=== PATIENT | male | born 1985 | race Caucasian/White ===

== ENCOUNTER 2020-08-12 08:05 | Emergency (ER) | payer MEDICAID, SELFPAY ==
[2020-08-12 08:18] VITALS: BP 149/96; PULSE 95; RESP 17; TEMP 36.6; O2SAT 99; BMI 23.0
--- NOTE | 2020-08-12 08:41 | ED_ITS ---
HPI - Male Genitourinary General Chief complaint: General Medical Stated complaint: STD CHECK Time Seen by Provider: 08/12/20 08:34 Source: patient Mode of arrival: ambulatory History of Present Illness HPI Narrative: for reports he was having intercourse with a new partner and his condom broke and since has had discomfort upon ejaculations. States he is concern for STI. MD Complaint: penile discharge and possible STD exposure Severity: mild Related Data Sexually active: Yes Allergies Allergy/AdvReac Type Severity Reaction Status Date / Time No Known Allergies Allergy Unverified 07/27/20 17:29 Review of Systems Review of Systems: Constitutional: No Weight loss, No Fever, No Chills, No Night Sweats, No Fatigue, No Malaise ENT/Mouth: No Hearing loss, No Ear Pain, No Nasal Congestion, No Sinus Pain, No Hoarseness, No sore throat, No Rhinorrhea, No Swallowing Difficulty Eyes: No Eye Pain, No Swelling, No Redness, No Foreign Body, No Discharge, No Vision Changes Cardiovascular: No Chest Pain, No SOB, No Dyspnea on Exertion, No Orthopnea, No Edema, No Palpitations Respiratory: No Cough, No Sputum, No Wheezing, No Smoke Exposure, No Dyspnea Gastrointestinal: No Nausea, No Vomiting, No Diarrhea, No Constipation, No abdominal Pain, No Hematochezia, No Melena Genitourinary: + Penile discharge intermittently, discomfort ejaculations. no irregular bleeding, No Dysuria, No Urinary Frequency, No Hematuria, No Urinary Incontinence, No Urgency, No Flank Pain, No Urinary Flow Changes, No Hesitancy Musculoskeletal: No joint pain, No Myalgias, No Joint Swelling Skin: No Skin Lesions, No rash Neuro: No Weakness, No Numbness, No Paresthesias, No Loss of Consciousness, No Dizziness, No Headache Psych: No Anxiety/Panic, No Depression, No SI/HI/AH/VH, No Social Issues, H admion/Lymph: No Bruising, No Bleeding,No Lymphadenopathy Endocrine: No Polyuria, No Polydipsia, No Temperature Intolerance Yes all other systems are reviewed and are negative [facility] Past Medical History Medical History (Updated 08/12/20 @ 08:55 by Saul Avila NP) No known health problems Social History Social History Advance Directives: No Advance Directives Information Provided: No Physical Exam Vital Signs and I&O and Narrative: Vital Signs and I&O: Vital Signs Temp 97.9 F 08/12/20 08:18 Pulse 95 08/12/20 08:18 Resp 17 08/12/20 08:18 BP 149/96 H 08/12/20 08:18 Pulse Ox 99 08/12/20 08:18 Intake & Output 08/11/20 08/12/20 08/12/20 18:59 06:59 18:59 Weight 58.967 kg Body Mass Index 23.0 Const: General: cooperative and healthy appearing; No acute distress or intox icated appearing Nutritional Appearance: average body habitus Orientation/consciousness: patient oriented x3 Eyes: General: appearance normal, both eyes and all related structures Visual Mercado: normal visual mercado by confrontation Neck: Neck: Yes normal visual inspection, No positive Brudzinski's sign, No positive Kernig's sign and No tender Thyroid: Thyroid normal Chest: Chest palpation & inspection: normal inspection of the chest Resp: Effort & Inspection: normal respiratory effort GI: Inspection: Yes normal to inspection Percussion: Yes normal to percussion Auscultation: normal bowel sounds : General: Yes no CVA tenderness Male General Exam: Yes normal external exam Penis: uncircumcised, no masses, no nodules, no papules, no pustules, no vesicles, no swelling and other ( Very minimal purulent discharge noted from the urethra upon expression ) Meatus: meatus normal Scrotum: scrotum normal Testes: Testes normal Back/Spine/Pelvis: Back: no CVA tenderness Skin: General skin exam: no rashes or lesions noted Neuro: General: patient oriented x3 Extrem: General: Yes normal to inspection Psych: Appearance: grossly normal and well kempt MDM - Male Genitourinary MDM Narrative Medical decision making narrative: Urethral swab for CT/NG. Empirically treated With ceftriaxone/azithromycin. Encouraged to go to [facility] for full panel STD testing. Verbalized understanding. Differential Diagnosis Differential diagnosis: Likely urinary tract infection and urethritis; Unlikely priapism, epididymitis, genital herpes simplex and prostatitis Medical Records Attestation: I reviewed the patient's medical records. Discharge Plan Discharge Clinical Impression: STD (sexually transmitted disease) Patient Disposition: Home, Self-Care Instructions: Sexually Transmitted Diseases (ED), Male Condom Use (ED) Additional Instructions: go to [facility] for full panel STD testing at [facility] on [address] [facility] today we have tested for 2 common STDs (chlamydia/gonorrhea) in treated for this Avoid any sexual contact until you are cleared by the Health Center Return if any concerns or worsening symptoms Thank you
[2020-08-12 09:11] LABS: Glucose Urine UA NEG (NEG); Leukocyte Esterase Urine NEG (NEG); Nitrite Urine NEG (NEG); Specific Gravity - Urine >= 1.030 (1.005-1.025); Urine Blood NEG (NEG); Urine Ketones NEG (NEG); Urine Protein NEG (NEG-TRACE)
[2020-08-12 09:12] LABS: Appearance Urine CLEAR; Color Urine YELLOW
[2020-08-12] MEDS: Azithromycin 500 MG TABLET 1000 MG PO (09:12)
[2020-08-12] MEDS: cefTRIAXone sodium 250 MG VIAL IM (09:13)
[2020-08-12] MEDS: Lidocaine HCl 1 % 20 ML VIAL SUBCUT (09:17)
[2020-08-12 09:22] LABS: RBC Urine 0 /HPF (0); Squamous Epithelial Cell Urine 1+ /LPF; WBC Urine 0 /HPF (0-4)
[2020-08-12 09:23] LABS: Mucus Urine 3+ /LPF
[2020-08-12 12:19] LABS: CT PCR NOT DETECTED (Not Detect.); NG PCR NOT DETECTED (Not Detect.)
== END 2020-08-12 09:30 | disposition home or self-care (01) ==
LOC: HO.ED 08:55
PROVIDERS: Nurse Practitioner Primary Care; Emergency Provider Emergency Medicine
DX: Z20.2 Contact with and (suspected) exposure to infections with a predominantly sexual mode of transmission (principal)
CPT/HCPCS: 36415; 81001; 81003; 87491; 87591; 96372; 99284; J0696

== ENCOUNTER 2021-01-01 00:17 | Emergency (ER) | payer MEDICAID, SELFPAY ==
[2021-01-01 02:02] VITALS: BP 138/92; PULSE 94; RESP 16; TEMP 36.5; O2SAT 97; BMI 24.2
--- NOTE | 2021-01-01 02:15 | PC.NURSE ---
at bedside for primary eval. Plan for labs and GI cocktail. Labs obtained and sent. Awaiting results. Continue to monitor.
--- NOTE | 2021-01-01 02:17 | ED_ITS ---
HPI - Abdominal Pain General Chief Complaint: Abdominal Pain Stated Complaint: ABD PAIN Time Seen by Provider: 01/01/21 02:02 Source: patient Mode of arrival: ambulatory Limitations: no limitations History of Present Illness HPI narrative: Patient comes emergency room complaining of abdominal pain, epigastric pain for the last 5 days. Patient states it is intermittent, burning sensation, nonradiating. Patient reports nausea, 1 episode of vomiting, 2 episodes of diarrhea. Related Data Previous Rx's Medication Instructions Recorded omeprazole 20 mg PO DAILY #14 cap 01/01/21 Allergies Allergy/AdvReac Type Severity Reaction Status Date / Time No Known Allergies Allergy Verified 01/01/21 02:09 Review of Systems Review of Systems Constitutional : No Weight loss, No Fever, No Chills, No Night Sweats, No Fatigue, No Malaise ENT/Mouth : No Hearing loss, No Ear Pain, No Nasal Congestion, No Sinus Pain, No Hoarseness, No sore throat, No Rhinorrhea, No Swallowing Difficulty Eyes: No Eye Pain, No Swelling, No Redness, No Foreign Body, No Discharge, No Vision Changes Cardiovascular : No Chest Pain, No SOB, No Dyspnea on Exertion, No Orthopnea, No Edema, No Palpitations Respiratory : No Cough, No Sputum, No Wheezing, No Smoke Exposure, No Dyspnea Gastrointestinal : Complaining of nausea, 1 episode of vomiting, 1 episode of diarrhea, epigastric burning sensation, No Hematochezia, No Melena Genitourinary : no irregular bleeding, No Dysuria, No Urinary Frequency, No Hematuria, No Urinary Incontinence, No Urgency, No Flank Pain, No Urinary Flow Changes, No Hesitancy Musculoskeletal : No joint pain, No Myalgias, No Joint Swelling Skin : No Skin Lesions, No rash Neuro : No Weakness, No Numbness, No Paresthesias, No Loss of Consciousness, No Dizziness, No Headache Psych : No Anxiety/Panic, No Depression, No SI/HI/AH/VH, No Social Issues, Heme/Lymph: No Bruising, No Bleeding,No Lymphadenopathy Endocrine : No Polyuria, No Polydipsia, No Temperature Intolerance Physical Exam Vital Signs: Vital Signs: Last Vital Signs Temp 97.7 F 01/01/21 02:02 Pulse 94 01/01/21 02:02 Resp 16 01/01/21 02:02 BP 138/92 H 01/01/21 02:02 Pulse Ox 97 01/01/21 02:02 Body Mass Index 24.2 Appearance: Alert. Oriented X3. No acute distress. Eyes: Pupils equal, round and reactive to light. ENT: Pharynx normal. Neck: Normal inspection. Neck supple. No lymph nodes noted. No crepitus CVS: Normal heart rate and rhythm. Pulses normal. Normal S1 and S2 Respiratory: No respiratory distress. Breath sounds normal. No Wheezing. No rales Abdomen: Soft , mild tenderness in epigastric area, negative Lewis sign, No rigidity. No distention. good BS x4 Skin: Skin warm and dry. Normal skin color. Normal skin turgor. Extremities: No lower extremity edema. No lower extremity edema. No Lacerations. No Rash Neuro: Oriented X 3. No motor deficit. No sensory deficit. Moving all extermities. No slurred speech. Course Course Course Narrative: Patient's white blood cell count likely secondary to reactive leukocytosis. Patient states that he had significant relief after the GI cocktail. At this time, not having any abdominal pain, no nausea or diarrhea. Patient likely has gastritis versus peptic ulcer disease MDM - Abdominal Pain Lab Data Result diagrams: 01/01/21 02:22 01/01/21 02:22 Labs: Lab Results 01/01/21 01/01/21 Range/Units 02:22 02:22 WBC 13.0 H (4.8-10.8) X10*3/uL RBC 4.13 L (4.60-5.80) X10*6/uL Hgb 12.0 L (14.0-18.0) g/dl Hct 36.4 L (42-52) % MCV 88.1 (80-98) fL MCH 29.1 (27.0-33.0) pg MCHC 33.0 (31.0-36.0) g/dl RDW 12.6 (11.0-16.0) % Plt Count 300 (160-400) X10*3/uL MPV 9.7 (9.4-12.4) fL Immature Gran % (Auto) 0.3 (0.0-0.4) % Neut % (Auto) 75.0 H (45-73) % Lymph % (Auto) 10.5 L (20-40) % [place] % (Auto) 10.2 (2-11) % Eos % (Auto) 3.8 (0-4) % Baso % (Auto) 0.2 (0-2) % Lymph # (Auto) 1.4 (1.2-4.9) X10*3/uL [place] # (Auto) 1.3 H (0.1-1.2) X10*3/uL Eos # (Auto) 0.5 H (0.0-0.4) X10*3/uL Baso # (Auto) 0.0 (0.0-0.2) X10*3/uL Abs Immat Gran (auto) 0.04 H (0.00-0.03) X10*3/uL Absolute Neuts (auto) 9.8 H (2.0-8.3) X10*3/uL Absolute Nucleated RBC 0.000 (0.0-0.012) X10*3/uL Nucleated RBC % (auto) 0.0 (0.0-0.2) /100WBC Sodium 137 (135-145) mmol/L Potassium 3.7 (3.3-5.1) mmol/L Chloride 100 (96-108) mmol/L Carbon Dioxide 28 (22-29) mmol/L Anion Gap 13 (12-20) BUN 16 (9-16) mg/dL Creatinine 0.82 (0.5-1.4) mg/dL Estim Creat Clear Calc 112.3 Estimated GFR > 60 Random Glucose 105 (60-115) mg/dL Calcium 8.6 (8.4-10.2) mg/dL Total Bilirubin 0.5 (0.0-1.0) mg/dL Direct Bilirubin 0.2 (0.0-0.5) mg/dL AST 16 (5-37) U/L ALT 8 (0-40) U/L Alkaline Phosphatase 61 (39-117) U/L Total Protein 7.4 (6.5-8.0) g/dL Albumin 4.4 (3.5-5.0) g/dL Lipase 21 (8-78) U/L Discharge Plan Discharge Clinical Impression: Gastritis Qualifiers: Gastritis type: unspecified gastritis Chronicity: unspecified Gastritis bleeding: without bleeding Qualified Code(s): K29.70 - Gastritis, unspecified, without bleeding Patient Disposition: Home, Self-Care Instructions: Gastritis (ED), Diet for Stomach Ulcers and Gastritis (ED) Additional Instructions: Please follow-up with your primary care physician tomorrow. If you have any worsening or new symptoms, please return to the emergency room or call 911 Prescriptions: New omeprazole 20 mg capsule,delayed release(DR/EC) 20 mg PO DAILY Qty: 14 RF: 0 PMFSH Past Medical History Medical History No known health problems Social History Social History Alcohol intake: unknown Smoking Status: Unknown if ever smoked Advance Directives: No Advance Directives Information Provided: No
[2021-01-01] MEDS: Lidocaine HCl Viscous 2 % 15 ML SOLUTION MUCOUS MEM (02:20)
[2021-01-01] MEDS: Magnesium Hydrox/Alum Hydrox 30 ML ORAL.SUSP PO (02:20)
[2021-01-01 02:30] LABS: Basophils Percent Auto 0.2 % (0-2); Eosinophils Absolute Auto 0.5 X10*3/uL (0.0-0.4); Eosinophils Percent Auto 3.8 % (0-4); Hematocrit 36.4 % (42-52); Imm Gran Abs Auto 0.04 X10*3/uL (0.00-0.03); Imm Gran Pct Auto 0.3 % (0.0-0.4); Lymphocytes Absolute Auto 1.4 X10*3/uL (1.2-4.9); Lymphocytes Percent Auto 10.5 % (20-40); MANUAL DIFF FLAG NO; Mean Corpuscular Hemoglobin 29.1 pg (27.0-33.0); Mean Corpuscular Volume 88.1 fL (80-98); Mean Platelet Volume 9.7 fL (9.4-12.4); Monocytes Absolute Auto 1.3 X10*3/uL (0.1-1.2); Monocytes Percent Auto 10.2 % (2-11); Neutrophils Absolute Auto 9.8 X10*3/uL (2.0-8.3); Platelet Count 300 X10*3/uL (160-400); Red Blood Count 4.13 X10*6/uL (4.60-5.80); Red Cell Distribution Width 12.6 % (11.0-16.0)
--- NOTE | 2021-01-01 02:50 | PC.NURSE ---
Pt ambulating to the bathrom with a corea/steady gait.
[2021-01-01 03:04] LABS: Alanine Aminotransferase 8 U/L (0-40); Albumin Level 4.4 g/dL (3.5-5.0); Alkaline Phosphatase 61 U/L (39-117); Anion Gap 13 (12-20); Aspartate Amino Transferase 16 U/L (5-37); Bilirubin Direct 0.2 mg/dL (0.0-0.5); Bilirubin Total 0.5 mg/dL (0.0-1.0); Blood Urea Nitrogen 16 mg/dL (9-16); Calcium 8.6 mg/dL (8.4-10.2); Carbon Dioxide 28 mmol/L (22-29); Chloride 100 mmol/L (96-108); Creatinine Clr Calc Pharmacy 112.3; Estimated Glomerular Filt Rate > 60; Glucose Random 105 mg/dL (60-115); Lipase 21 U/L (8-78); Potassium 3.7 mmol/L (3.3-5.1); Sodium 137 mmol/L (135-145); Total Protein 7.4 g/dL (6.5-8.0)
--- NOTE | 2021-01-01 03:58 | PC.NURSE ---
MD at bedside discussing results and plan to DC home.
[2021-01-01 04:05] VITALS: BP 124/76; PULSE 74; RESP 16; O2SAT 97
== END 2021-01-01 04:23 | disposition home or self-care (01) ==
PROVIDERS: Emergency Provider Emergency Medicine
DX: K29.70 Gastritis, unspecified, without bleeding (principal); Z79.899 Other long term (current) drug therapy
CPT/HCPCS: 36415; 80048; 80076; 83690; 85025; 99283

== ENCOUNTER 2022-06-07 04:30 | Emergency (ER) | payer MEDICAID, SELFPAY ==
[2022-06-07 04:53] VITALS: BP 138/81; PULSE 96; RESP 18; TEMP 36.8; O2SAT 97; BMI 23.9
--- NOTE | 2022-06-07 08:45 | ED.GENADULT ---
HPI - General Adult General Chief complaint: Extremity Problem Stated complaint: L foot inj Time Seen by Provider: 06/07/22 08:25 Source: patient Mode of arrival: ambulatory Limitations: no limitations History of Present Illness HPI narrative: 37 yold male presents to the ED right 5th toe pain, swelling, redness, and white fungus between 4th and 5th big toe. patient states wearing boots from work that is tight every day. Patient denies any trauma to the foot. Patient denies any pus discharge or foul odor. Patient denies any other symptoms. Patient denies any history of diabetes, IV drug use, or any immunocompromised diseases. Related Data Previous Rx's Medication Instructions Recorded omeprazole 20 mg capsule,delayed 20 mg PO DAILY #14 caps 01/01/21 release cephalexin 500 mg capsule 500 mg PO QID 7 days #28 caps 06/07/22 clotrimazole 1 % topical cream 1 appl topical BID 2 weeks #45 06/07/22 grams naproxen 500 mg tablet 500 mg PO BID PRN pain 10 days #20 06/07/22 tabs Allergies Allergy/AdvReac Type Severity Reaction Status Date / Time No Known Allergies Allergy Verified 06/07/22 04:55 Review of Systems Review of Systems: right 5th big toe pain Yes all other systems are reviewed and are negative [facility] Past Medical History Medical History No known health problems Social History Social History Alcohol intake: unknown Advance Directives: No Advance Directives Information Provided: No Physical Exam ED Vital Signs: Vital Signs - 24 hr 06/07/22 04:53 Temperature 98.3 F Pulse Rate 96 Respiratory Rate 18 Blood Pressure 138/81 Pulse Oximetry 97 Oxygen Delivery Method Room Air BMI result Body Mass Index 23.9 Const General: cooperative, healthy appearing, comfortable, no acute distress, well developed, alert, awake and Physically active Orientation/consciousness: patient oriented x3 HENMT Head: Yes normal to inspection, Yes No palpable skull fracture present, Yes normocephalic and Yes atraumatic Eyes General: appearance normal, both eyes and all related structures Neck Neck: Yes normal visual inspection, Yes full ROM, Yes no lymphadenopathy, Yes no meningeal signs, Yes trachea midline, Yes supple, No anterior neck swelling and No tender Chest Chest palpation & inspection: normal inspection of the chest and normal palpation of entire chest wall Resp Effort & Inspection: normal respiratory effort and able to speak in complete sentences Auscultation: clear to auscultation bilaterally Cardio Jugular venous distension: no JVD Heart sounds: S1 normal heart sound present and S2 normal heart sound present GI Inspection: Yes normal to inspection and No abdominal wall ecchymosis Palpation (GI): Soft to palpation, not firm, nontender, no guarding and not rigid General: No CVA tenderness and Yes no CVA tenderness Back/Spine/Pelvis Back: no CVA tenderness, No CVA tenderness and No back tenderness Skin General skin exam: no rashes or lesions noted and elasticity normal Neuro General: patient oriented x3, gait normal, no meningeal signs and CN's II-XI intact bilaterally Cranial nerves: Yes CN's II-XII intact bilaterally Extrem General: Yes normal to inspection and Yes full ROM Ankle/foot/toe images: 1. mild redness, swelling, and tenderness on palpation. Negative for pus collection, ulcers, or foul odor. Right lower extremity vascular/ motor/neuro exam intact. 2. White fungal rash between 5th and 4th toe. Psych Appearance: grossly normal, well kempt and not disheveled Course Course Course Narrative: No imaging indicated. There was no trauma. no obvious corn on foot. Reevaluation(s) Reevaluation #1: History physical exam indicate tinea pedis and mild cellulitis. Patient informed to stop wearing tight shoes. patient educating on sennas in the shower. patient also educated on not to let his feet get sweaty. History physical exam does not indicate gout or ingrown toenail. Not suspect necrotizing fasciitis. not suspecting any fracture patient did not have any trauma. Time: 21:02 Medical Decision Making [facility] Narrative Medical decision making narrative: RIght tinea pedis/cellulitits Discharge Plan Discharge Clinical Impression: Tinea pedis, Cellulitis Patient Disposition: Home, Self-Care Instructions: Athlete's Foot (ED), Cellulitis (ED) Additional Instructions: History physical exam indicate skin infection and fungal rash. You will be discharged with antibiotics and antifungal cream. Return to the ED immediately for increased swelling, severe pain, pus discharge, foul odor, bluish black discoloration, development of red streaks, whole extremity swelling, coldness, calf pain, chest pain, shortness of breath, fever, chills, worsening pain, or any other concerning symptoms. 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 Wear soles in shoes are try to relieve pressure. Prescriptions: New clotrimazole 1 % cream 1 appl topical BID 14 Days Qty: 45 0RF cephalexin 500 mg capsule 500 mg PO QID 7 Days Qty: 28 0RF naproxen 500 mg tablet 500 mg PO BID PRN (Reason: pain) 10 Days Qty: 20 0RF No Action omeprazole 20 mg capsule,delayed release(DR/EC) 20 mg PO DAILY Qty: 14 0RF Stand Alone Forms: Work/School Release Discharge Date/Time: 06/07/22 09:18 Print Language: Norwegian
== END 2022-06-07 09:20 | disposition home or self-care (01) ==
PROVIDERS: Emergency Provider Student in an Organized Health Care Education/Training Program
DX: B35.3 Tinea pedis (principal); L03.031 Cellulitis of right toe
CPT/HCPCS: 99282; 99283

== ENCOUNTER 2022-08-09 13:55 | Emergency (ER) | payer MEDICAID, SELFPAY ==
[2022-08-09 14:03] VITALS: BP 143/86; PULSE 74; RESP 18; TEMP 37.1; O2SAT 100; BMI 24.0
--- NOTE | 2022-08-09 14:34 | ED.URI ---
HPI - URI/Sore Throat General Chief Complaint: Headache Stated Complaint: Headache/Neck pain/Back pain Time Seen by Provider: 08/09/22 14:24 Source: patient Mode of arrival: ambulatory Limitations: no limitations History of Present Illness HPI Narrative: 37 yo male otherwise healthy not vaccinated for COVID - had exposure to COVID from work presents with headaches, chills, sore throat, cough, body aches - started yesterday. Does not have home tests. MD elicited complaint: cough, sore throat and other (body aches) Onset (ago): day(s) (yesterday ) Consistency: constant Severity: mild Description of mucous: clear Able to tolerate fluids by mouth: Yes Exacerbating factors: swallowing Relieving factors: nothing Context: sick contacts (COVID exposures at work) Associated symptoms: chills, myalgias, headache, sore throat and cough Treatments prior to arrival: none Related Data Previous Rx's Medication Instructions Recorded omeprazole 20 mg capsule,delayed 20 mg PO DAILY #14 caps 01/01/21 release cephalexin 500 mg capsule 500 mg PO QID 7 days #28 caps 06/07/22 clotrimazole 1 % topical cream 1 appl topical BID 2 weeks #45 06/07/22 grams naproxen 500 mg tablet 500 mg PO BID PRN pain 10 days #20 06/07/22 tabs Allergies Allergy/AdvReac Type Severity Reaction Status Date / Time No Known Allergies Allergy Verified 06/07/22 04:55 Review of Systems Review of Systems: Constitutional : no Fever, positive Chills, no fatigue, positive Malaise ENT/Mouth : positive sore throat, positive runny nose Eyes: No Discharge Cardiovascular : No Chest Pain, No SOB Respiratory : pos Cough, No Sputum Gastrointestinal : No Nausea, No Vomiting, No Diarrhea Genitourinary : No Dysuria, No Urinary Frequency Musculoskeletal : positive Myalgia Skin : No rash Neuro : pos Headache PMFSH Past Medical History Attestation statement: The following information was validated with the patient. Medical History No known health problems Social History Social History (Updated 08/09/22 @ 15:12 by Niharika Miramontes DO) Alcohol intake: unknown Patient Tobacco Use Status: Current someday Tobacco user Advance Directives: No Advance Directives Information Provided: No Physical Exam Vital Signs: Vital Signs: Last Vital Signs Temp 98.7 F 08/09/22 14:03 Pulse 74 08/09/22 14:03 Resp 18 08/09/22 14:03 BP 143/86 H 08/09/22 14:03 Pulse Ox 100 08/09/22 14:03 O2 Del Method 08/09/22 14:03 BMI result Body Mass Index 24.0 Appearance: Alert. Oriented X3. No acute distress. Eyes: Pupils equal, round and reactive to light. ENT: Pharynx moderate generalized erythema no edema or exudates noted Neck: Normal inspection. Neck supple. full ROM no meningeal signs CVS: Normal heart rate and rhythm. Pulses normal. Respiratory: No respiratory distress. Breath sounds normal. Abdomen: Soft and non-tender. Skin: Skin warm and dry. Normal skin color. Extremities: No lower extremity edema. Neuro: Oriented X 3. No motor deficit. No sensory deficit. Course Course Course Narrative: negative swabs MDM - URI/Sore Throat MDM Narrative Medical decision making narrative: 37 yo male otherwise healthy here with c/o URI symptoms. Not toxic normal VS. COVID exposure at this time will need strep, COVID test, flu swab - if negative will refer for COVID testing in 2 days Lab Data Labs: Lab Results 08/09/22 08/09/22 08/09/22 Range/Units 14:07 14:41 14:41 COVID-19 (USHA) Negative (Negative) COVID-19 Clin Com See Note Influenza Type A (TREVOR) Negative (Negative) Influenza Type B (TREVOR) Negative (Negative) Influenza A & B Note See Note S. pyogenes GrpA TREVOR Negative (Negative) Discharge Plan Discharge Clinical Impression: Acute viral syndrome Patient Disposition: Home, Self-Care Instructions: Viral Syndrome (ED) Additional Instructions: return to ED for any worsening symptoms or concerns negative strep, negative COVID, negative flu repeat COVID test in 2 days Prescriptions: No Action omeprazole 20 mg capsule,delayed release(DR/EC) 20 mg PO DAILY Qty: 14 0RF clotrimazole 1 % cream 1 appl topical BID 14 Days Qty: 45 0RF cephalexin 500 mg capsule 500 mg PO QID 7 Days Qty: 28 0RF naproxen 500 mg tablet 500 mg PO BID PRN (Reason: pain) 10 Days Qty: 20 0RF Stand Alone Forms: Work/School Release
[2022-08-09 14:37] LABS: COVID-19 Test Negative (Negative); IDNOW Serial# 9DB6401D
[2022-08-09 14:58] LABS: IDNOW Serial# 08D9AD1C; Strep A Nucleic Acid Negative (Negative)
[2022-08-09 15:26] LABS: IDNOW Serial# 16C4AD1C; Influenza A Negative (Negative); Influenza B2 Negative (Negative)
== END 2022-08-09 15:37 | disposition home or self-care (01) ==
PROVIDERS: Emergency Provider Emergency Medicine
DX: B34.9 Viral infection, unspecified (principal); R51.9 Headache, unspecified; R05.9 Cough, unspecified; M79.10 Myalgia, unspecified site; Z20.822 Contact with and (suspected) exposure to COVID-19
CPT/HCPCS: 36415; 87502; 87635; 87651; 99282; 99283

== ENCOUNTER 2022-11-11 15:43 | Emergency (ER) | payer MEDICAID, SELFPAY ==
--- NOTE | ~2022-11-11 | XR_ITS ---
EXAMINATION: XR KNEE, RIGHT CLINICAL INFORMATION: Pain COMPARISON: None TECHNIQUE: Four views of the right knee. FINDINGS: Tien, screws through the distal femur, hardware are intact. There is a radiodense metallic body embedded in the soft tissue popliteal fossa, this is chronic and has not changed since 2013. There is bone growth likely osteochondroma protruding from the dorsal cortex of distal femur away from the joint. This is also chronic and has been stable. Joint spaces are preserved. Patella properly positioned. No joint effusion. XR/XR knee RT 4V IMPRESSION: No acute findings. Chronic changes as described above including metallic 2.6 cm foreign body embedded in the popliteal fossa unchanged..
[2022-11-11 17:30] VITALS: BP 127/88; PULSE 71; RESP 16; TEMP 36.3; O2SAT 99; BMI 20.9
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
[2022-11-11 20:10] VITALS: BP 118/78; PULSE 66; RESP 16; TEMP 36.6; O2SAT 97
== END 2022-11-11 20:30 | disposition home or self-care (01) ==
PROVIDERS: Emergency Provider Internal Medicine
DX: G89.29 Other chronic pain (principal); M25.561 Pain in right knee; F17.200 Nicotine dependence, unspecified, uncomplicated
CPT/HCPCS: 73564; 99282; 99283

== ENCOUNTER 2023-03-24 21:35 | Emergency (ER) | payer MEDICAID, SELFPAY ==
--- NOTE | ~2023-03-24 | XR_ITS ---
EXAMINATION: XR KNEE, RIGHT CLINICAL INFORMATION: Injury. COMPARISON: None available. TECHNIQUE: Four views of the right knee. FINDINGS: There is anterolateral femoral gary and 2 nails traversing the distal femur. There is no visible fracture or dislocation on the visualized images. There is mild loss of medial and patellofemoral compartment joint space. No abnormal joint effusion, loose bodies or bony erosive changes. There is a small osteochondroma distal medial femur. Radiopaque urolithiasis seen along the posterior distal femur soft tissues. XR/XR knee RT 2V IMPRESSION: Mild degenerative changes medial and patellofemoral compartment right knee. Osteochondroma distal medial femur. Large radiopaque metallic foreign body posterior distal femur soft tissues.
[2023-03-24 21:36] VITALS: BP 108/67; PULSE 68; RESP 18; TEMP 36.2; O2SAT 100; BMI 25.8
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
[2023-03-25] MEDS: Ketorolac Tromethamine 15 MG/ML VIAL 30 MG IM (00:08)
== END 2023-03-25 00:08 | disposition home or self-care (01) ==
PROVIDERS: Emergency Provider Emergency Medicine
DX: M17.11 Unilateral primary osteoarthritis, right knee (principal); D16.21 Benign neoplasm of long bones of right lower limb; M25.561 Pain in right knee
CPT/HCPCS: 73560; 96372; 99283; 99284; J1885

== ENCOUNTER → 2023-05-08 14:51 | Outpatient (BNVA) | payer MEDICAID, SELFPAY | PROVIDERS: Visit Provider Orthopaedic Surgery | DX: D16.9 Benign neoplasm of bone and articular cartilage, unspecified (principal); M25.669 Stiffness of unspecified knee, not elsewhere classified | CPT/HCPCS: 99202 ==

== ENCOUNTER 2023-05-20 10:07 | Outpatient (AMB) | payer MEDICAID, SELFPAY ==
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
[2023-05-20 10:16] VITALS: BP 140/93; PULSE 67; O2SAT 96; BMI 22.3
== END 2023-05-20 10:49 | disposition home or self-care (01) ==
PROVIDERS: Visit Provider Nurse Practitioner Family
DX: M25.669 Stiffness of unspecified knee, not elsewhere classified (principal); M17.11 Unilateral primary osteoarthritis, right knee; M25.561 Pain in right knee; D16.9 Benign neoplasm of bone and articular cartilage, unspecified
CPT/HCPCS: 99204

== ENCOUNTER → 2023-05-20 10:07 | Outpatient (BNVA) | payer MEDICAID, SELFPAY | PROVIDERS: Visit Provider Nurse Practitioner Family | DX: M25.669 Stiffness of unspecified knee, not elsewhere classified (principal); M17.11 Unilateral primary osteoarthritis, right knee; M25.561 Pain in right knee; D16.9 Benign neoplasm of bone and articular cartilage, unspecified | CPT/HCPCS: 99204 ==

== ENCOUNTER 2023-06-06 10:21 | Outpatient (AMB) | payer MEDICAID, SELFPAY ==
--- NOTE | 2023-06-06 10:36 | MHC.OFFVIS ---
Intake Vital Signs 06/06/23 11:33 Height 5 ft 6 in Weight 138 lb BMI 22.3 BP 133/78 Blood Pressure Location Lt brachial Position Sitting Respiration 14 Pulse 77 Pulse Source Pulse Oximeter Intake Visit Reasons: RIGHT DIAGNOSTIC FEMORAL NERVE BLOCK Photographic Aide Required: Yes Photographic Aide Name: [id number] Allergies No Known Allergies Allergy (Verified 05/20/23 10:11) HPI RIGHT DIAGNOSTIC FEMORAL NERVE BLOCK HPI Details 38-year-old male presenting today for right diagnostic femoral nerve block. A certified retail sales lead was present during the visit. The patient was referred by Charissa ABAD for diagnostic right femoral nerve block with local anesthesia and US guidance but he did not want to proceed with it and instead requested oral medications. 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 Alert and oriented. Mood and affect appropriate. Follows and participates in conversation appropriately. Respiratory effort is unlabored. Able to transition from sit to stand unassisted. Ambulates with bilaterally normal heel strike and toe off. Office Procedures Nerve Block Details: Opened by mistake. Additional procedure code (CPT) needed Results Reviewed Results Reviewed: No imaging is available for review. Assessment & Plan Assessment & Plan (1) Right knee pain: Code(s): M25.561 - Pain in right knee Plan He presented for right diagnostic femoral nerve block but did not want to proceed with it and instead requested oral medications. Prescribed gabapentin 300 milligrams QD QHS to be ramped up for a three-week course. Scribed for Dr. Bay by Ramses De Leon, medical record retrieval specialist, on 06/06/2023. I, Dr. Bay, have personally reviewed and agree with the information entered by the scribe. Medications: New gabapentin Take 1 capsule at night for a week. If well tolerated, increase to twice daily a week. If well tolerated, increase to thrice daily and continue. 300 mg PO TID 90 caps 0RF Coding Level of Care Code Est Pt Level 3 (05188) Diagnoses Right knee pain M25.561
[2023-06-06 11:33] VITALS: BP 133/78; PULSE 77; RESP 14; BMI 22.3
== END 2023-06-06 11:51 | disposition home or self-care (01) ==
PROVIDERS: Visit Provider Internal Medicine
DX: M17.11 Unilateral primary osteoarthritis, right knee (principal)
CPT/HCPCS: 99213

== ENCOUNTER → 2023-06-06 10:21 | Outpatient (BNVA) | payer MEDICAID, SELFPAY | PROVIDERS: Visit Provider Internal Medicine | DX: M25.561 Pain in right knee (principal) | CPT/HCPCS: 99212 ==

== ENCOUNTER 2025-05-24 14:21 | Emergency (ER) | payer MEDICAID, SELFPAY ==
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
--- NOTE | ~2025-05-24 | XR_ITS ---
EXAMINATION: XR HIP 1 VIEW RIGHT WITH PELVIS HISTORY: look at hardware COMPARISON: There are no prior studies available for comparison. FINDINGS: A single AP view of the pelvis and two views of the right hip are submitted. Osseous mineralization is normal. There is no fracture or dislocation. A portion of an intramedullary gary is seen in the right femur. There is mild narrowing of the joint space. The soft tissues are unremarkable. XR/XR hip RT w PEL1V IMPRESSION: Mild joint space narrowing. Electronically signed by: Bradly Betancourt MD 05/24/2025 03:28 PM EDT
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
[2025-05-24 14:38] VITALS: BP 126/77; PULSE 85; RESP 16; TEMP 36.9; O2SAT 98; BMI 23.4
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
[2025-05-24 17:38] VITALS: BP 126/77; PULSE 85; RESP 16; TEMP 36.9; O2SAT 98
== END 2025-05-24 17:54 | disposition home or self-care (01) ==
LOC: HO.ED 17:37
PROVIDERS: Emergency Provider Emergency Medicine Emergency Medical Services
DX: S80.01XA Contusion of right knee, initial encounter (principal); V86.56XA Driver of dirt bike or motor/cross bike injured in nontraffic accident, initial encounter; Y93.89 Activity, other specified; Y92.9 Unspecified place or not applicable; Y99.9 Unspecified external cause status; M25.561 Pain in right knee; Z79.899 Other long term (current) drug therapy
CPT/HCPCS: 70450; 72125; 73502; 73564; 96372; 99283; 99284; J1885

== ENCOUNTER → 2025-05-24 14:42 | Outpatient (BNV) | payer MEDICAID, SELFPAY | PROVIDERS: Visit Provider Radiology Diagnostic Radiology | DX: M50.30 Other cervical disc degeneration, unspecified cervical region (principal); R51.9 Headache, unspecified; M23.92 Unspecified internal derangement of left knee; M25.551 Pain in right hip | CPT/HCPCS: 70450; 72125; 73502; 73564 ==

== ENCOUNTER 2025-08-15 18:32 | Emergency (ER) | payer MEDICAID, SELFPAY ==
[2025-08-15 18:56] VITALS: BP 117/57; PULSE 70; RESP 16; TEMP 36.6; O2SAT 98; BMI 23.4
--- NOTE | 2025-08-15 19:02 | ED_ITS ---
HPI - Male Genitourinary General Chief complaint: Urogenital-Male Stated complaint: ?std Time Seen by Provider: 08/15/25 20:36 History of Present Illness HPI Narrative: Patient left without evaluation by ED provider Related Data Previous Rx's ?Medication ?Instructions ?Recorded ketorolac 10 mg tablet 10 mg PO TID PRN pain 5 days #15 03/24/23 tabs diclofenac sodium 1 % topical gel 4 g topical QID pain #100 grams 05/20/23 (Arthritis Pain (diclofenac)) lidocaine 5 % topical patch 1 patch topical DAILY pain #30 ea 05/20/23 gabapentin 300 mg capsule 300 mg PO TID #90 caps 06/06 Allergies Allergy/AdvReac Type Severity Reaction Status Date / Time No Known Allergies Allergy Verified 08/15/25 18:59 PMFSH Past Medical History Medical History No known health problems Social History Social History Alcohol intake: unknown Patient Tobacco Use Status: Current someday Tobacco user Cigarette Packs Per Day: 1 Advance Directives: No Advance Directives Information Provided: Yes Current occupational status: employed 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 Patient states lesion on penis after having sex last week and the condom breaking. Patient states leads in his itchy. Labs UA ordered. Medical Decision Making Lab Data 08/15/25 19:14 08/15/25 19:14 Labs: Lab Results 08/15/25 Range/Units 19:14 WBC 10.0 (4.8-10.8) X10*3/uL RBC 3.93 L (4.60-5.80) X10*6/uL Hgb 12.0 L (14.0-18.0) g/dl Hct 35.7 L (42.0-52.0) % MCV 90.8 (80.0-98.0) fL MCH 30.5 (27.0-33.0) pg MCHC 33.6 (31.0-36.0) g/dl RDW 13.5 (11.0-16.0) % Plt Count 262 (160-400) X10*3/uL MPV 9.8 (9.4-12.4) fL Immature Gran % (Auto) 0.3 (0.0-0.4) % Neut % (Auto) 51.0 (45-73) % Lymph % (Auto) 34.7 (20-40) % [place] % (Auto) 8.4 (2-11) % Eos % (Auto) 4.8 H (0-4) % Baso % (Auto) 0.8 (0-2) % Lymph # (Auto) 3.5 (1.2-4.9) X10*3/uL [place] # (Auto) 0.8 (0.1-1.2) X10*3/uL Eos # (Auto) 0.5 H (0.0-0.4) X10*3/uL Baso # (Auto) 0.1 (0.0-0.2) X10*3/uL Abs Immat Gran (auto) 0.03 (0.00-0.03) X10*3/uL Absolute Neuts (auto) 5.1 (2.0-8.3) x10*3/uL Absolute Nucleated RBC 0.000 (0.0-0.012) X10*3/uL Nucleated RBC % (auto) 0.0 (0.0-0.2) /100WBC Sodium 140 (135-145) mmol/L Potassium 3.6 (3.3-5.1) mmol/L Chloride 105 (96-108) mmol/L Carbon Dioxide 27 (22-29) mmol/L Anion Gap 12 (12-20) BUN 12 (9-16) mg/dL Creatinine 0.91 (0.5-1.4) mg/dL Estim Creat Clear Calc 99.8 Estimated GFR > 60 Random Glucose 89 (60-115) mg/dL Calcium 8.5 (8.4-10.2) mg/dL Total Bilirubin 0.2 (0.0-1.0) mg/dL AST 28 (5-37) U/L ALT 16 (0-40) U/L Alkaline Phosphatase 76 (39-117) U/L Total Protein 7.3 (6.5-8.0) g/dL Albumin 4.2 (3.5-5.0) g/dL Ur N gonorrhoeae DNA (PCR) NOT DETECTED (Not Detect.) T.pallidum Ab (EIA) Nonreactive (Nonreactive) Ur Chlamydia DNA (PCR) NOT DETECTED (Not Detect.) Discharge Plan Discharge Clinical Impression: Penile lesion Patient Disposition: Left W/O Completing Treatment Prescriptions: No Action ketorolac 10 mg tablet 10 mg PO TID PRN (Reason: pain) 5 Days Qty: 15 0RF diclofenac sodium [Arthritis Pain (diclofenac)] 1 % gel 4 g topical QID Qty: 100 3RF Rx Instructions: apply to right knee lidocaine 5 % adhesive patch,medicated 1 patch topical DAILY Qty: 30 1RF gabapentin 300 mg capsule 300 mg PO TID Qty: 90 0RF Rx Instructions: Take 1 capsule at night for a week. If well tolerated, increase to twice daily a week. If well tolerated, increase to thrice daily and continue. Discharge Date/Time: 08/15/25 23:52
--- OUTSIDE RECORDS SUMMARY | 2025-08-15 19:15 | XMS_ITS | Clinical Summary ---
Author Organization [facility] Address [address] [place] [address] Care Team Providers Care Director Supplier Quality Name Role Phone Unavailable Primary Care Provider Unavailabl e Social History Tobacco Use Types Packs/Day Years Used Date Smoking Tobacco: Never Assessed Sex and Gender Information Value Date Recorded Sex Assigned at Male 09/09/2022 10:19 AM EDT Legal Sex Male 10:19 AM EDT Gender Identity Male 09/09/2022 10:19 AM EDT Sexual Orientation Straight 09/09/2022 10 :19 AM EDT Plan of Treatment Health Maintenance Due Date Last Done Comments Depression Screening 1984 HIV Screening 1984 Lipid Panel 1984 Disability Screening 1984 Alcohol/Substance Use Screening 1996 Tobacco Screening 1996 Family Planning (PISQ) 1999 HPV Vaccines (1 - Male 3-dos e series) 1999 Hepatitis C Screening 2002 DTaP/Tdap/Td Vaccines (1 - Tdap) 2003 Hepatitis B Vaccines (3 of 3 - 19+ 3-dose series) 12/30/2013 11/04/2013, 05/17/2010 COVID-19 Vaccine (1 - 2023-2 5 season) 2025 Influenza Vaccine (#1) 2025 Zoster Vaccines (1 of 2) 2034 RSV Patients and Patients Aged 60 years or older (1 - 1-dose 75+ series) 2059 Hepatitis A Vaccines Aged Out 07/31/2010 No long er eligible based on patient's age to complete this topic HIB Vaccines Aged Out No longer eligi ble based on patient's age to complete this topic IPV Vaccines Aged Out No longer eligi ble based on patient's age to complete this topic Meningococcal B Vaccine Aged Out No l onger eligible based on patient's age to complete this topic Meningococcal Vaccine Aged Out No rosalva joey eligible based on patient's age to complete this topic Pneumococcal Vaccine: Pediatrics (0 to 5 Years) and At-Risk Patients (6 to 49) Years Aged Out No longer eligible b ased on patient's age to complete this topic RSV under 20 months Aged Out No longe r eligible based on patient's age to complete this topic Rotavirus Vaccines Aged Out No longer eligible based on patient's age to complete this topic
[2025-08-15 19:20] LABS: MANUAL DIFF FLAG NO
[2025-08-15 19:21] LABS: Hematocrit 35.7 % (42.0-52.0); Hemoglobin 12.0 g/dl (14.0-18.0); Imm Gran Abs Auto 0.03 X10*3/uL (0.00-0.03); Imm Gran Pct Auto 0.3 % (0.0-0.4); Lymphocytes Absolute Auto 3.5 X10*3/uL (1.2-4.9); Mean Corpuscular HGB Conc 33.6 g/dl (31.0-36.0); Mean Corpuscular Hemoglobin 30.5 pg (27.0-33.0); Mean Corpuscular Volume 90.8 fL (80.0-98.0); NRBC Abs Auto 0.000 X10*3/uL (0.0-0.012); NRBC Pct Auto 0.0 /100WBC (0.0-0.2); Platelet Count 262 X10*3/uL (160-400); Red Blood Count 3.93 X10*6/uL (4.60-5.80); White Blood Count 10.0 X10*3/uL (4.8-10.8)
[2025-08-15 20:01] LABS: Alanine Aminotransferase 16 U/L (0-40); Albumin Level 4.2 g/dL (3.5-5.0); Alkaline Phosphatase 76 U/L (39-117); Anion Gap 12 (12-20); Aspartate Amino Transferase 28 U/L (5-37); Blood Urea Nitrogen 12 mg/dL (9-16); Calcium 8.5 mg/dL (8.4-10.2); Carbon Dioxide 27 mmol/L (22-29); Chloride 105 mmol/L (96-108); Creatinine Clr Calc Pharmacy 99.8; Estimated Glomerular Filt Rate > 60; Potassium 3.6 mmol/L (3.3-5.1); Sodium 140 mmol/L (135-145); Total Protein 7.3 g/dL (6.5-8.0)
[2025-08-16 07:51] LABS: Syphilis Screen Nonreactive (Nonreactive)
[2025-08-16 08:32] LABS: CT PCR Urine NOT DETECTED (Not Detect.); NG PCR Urine NOT DETECTED (Not Detect.)
== END 2025-08-15 23:52 | disposition left against medical advice (07) ==
PROVIDERS: Physician Assistant; Emergency Provider Emergency Medicine
DX: N48.89 Other specified disorders of penis (principal)
CPT/HCPCS: 36415; 80053; 85025; 86780; 87491; 87591; 99282